=== PATIENT | male | born 1985 | race African-American/Black ===

== ENCOUNTER 2019-11-06 20:56 | Emergency (ER) | payer BC, SELFPAY ==
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
== END 2019-11-07 00:18 ==
LOC: ER 20:56
DX: I46.9 Cardiac arrest, cause unspecified (principal); X93.XXXA Assault by handgun discharge, initial encounter; Y93.89 Activity, other specified; Y92.89 Other specified places as the place of occurrence of the external cause
CPT/HCPCS: 99284